=== PATIENT | male | born 1955 | race Caucasian/White ===

== ENCOUNTER 2017-12-16 03:21 | Observation (INO) | payer OTHER ==
[~2017-12-16] VITALS: Ht 175.3 cm; Wt 91.2 kg
[~2017-12-16 03:21] MED LIST: AMLODIPINE-BEN1 EAC5 PO; CYCLOBENZAPRINE5 M2 PO; LOPRESSOR50 M1 PO; MECLIZINE HCL25 MG PO; METOPROLOL TART25 M1 PO; OMEPRAZOLE40 M1 PO; ST. JOSEPH ASPI81 M1 PO
--- NOTE | 2017-12-16 10:16 | Operative Report ---
Operative/Inv Procedure Report Surgery Date: 12/16/17 Name of Procedure: MRI compatible dual-chamber pacemaker Pre-Operative Diagnosis: Sick sinus syndrome with symptomatic bradycardia and episodic second-degree heart block Post-Operative Diagnosis: Same Estimated Blood Loss: scant Surgeon/Welder Setter Electron Beam Machine: Tony Fernandes MD,Parviz Russell Anesthesia: local monitored anesthesi Operative/Procedure Note Note: After placement of monitoring lines the patient's left chest and shoulder were prepped and draped in a sterile fashion. 1% lidocaine was used as local anesthetic. Incision was made in the deltopectoral groove and carried down to prepectoralis fascia. Exploration the deltopectoral groove discovered no cephalic vein. The patient was then placed in Trendelenburg position and the subclavian vein was cannulated with a needle. A wire was passed under fluoroscopy into the right atrium. Sheath dilator was passed over the wire and the wire was retained. A Medtronic lead model #[id number] was then advanced and the pulmonary outflow tract and withdrawn into the right ventricular apex. R waves were measured at 13.4 mV. The pacing threshold was at 0.3 V with a current of 0.1 mA and an impedance of 1389 ohms. Sheath dilator was then passed over the retained wire and a preformed atrial lead model #[id number] was then passed through the sheath into the right atrial appendage. P waves were measured at 4.1 mV. The pacing threshold was at 0.3 V with a current was 0.4 mA and an impedance of 930 ohms. The leads were secured to the muscle fascia with Ethibond sutures. A pacemaker pocket was established with electrocautery. The leads were then connected to an MRI compatible dual-chamber Medtronic pacemaker. The pacemaker pocket was irrigated with antibiotic irrigation. Hemostasis was achieved with electrocautery. The wound was closed with a deep running Vicryl suture followed by running Vicryl subcuticular suture. It was dressed with a sterile dressing and a pressure dressing. The patient tolerated procedure well and brought to the recovery room awake in stable condition. CC: Ivana South MD
--- NOTE | 2017-12-16 11:00 | RADIOLOGY REPORT ---
EXAMINATION: XR PORTABLE CHEST CLINICAL INFORMATION: Status post pacemaker insertion COMPARISON: 12/12/2017 TECHNIQUE: Portable frontal view of the chest was obtained. FINDINGS: Lungs are hypoinflated and clear. No pulmonary edema, consolidation, pneumothorax or pleural effusion. Left pectoral region cardiac pacemaker with transvenous leads extending to the level of the right atrium and right ventricle. No acute osseous findings. IMPRESSION: No acute pulmonary disease after pacemaker insertion.
[2017-12-16 13:08] VITALS: BP 200/90
--- NOTE | 2017-12-16 15:32 | PN- Thoracic Surgery ---
Subjective Subjective: POC feeling well, some soreness at incision. no cp/sob. sandi reg diet, no n/v. + void. elevated BP postop, though denies taking his home BP meds today Objective Vital Signs and I&Os rechecked now: 184/78, was 200/90 when arrived to floor. HR 70s on monitor Physical Exam: GEN- NAD CARD- s1s2 rrr PULM-ctab INCISION- left chest dressing cdi EXT-calves soft nt Current Medications: Current Medications Sig/Elroy Start time Last Medication Dose Route Stop Time Status Admin Acetaminophen 650 MG Q6P PRN 12/16 1345 AC PO Amlodipine Besylate 10 MG DAILY 12/17 1000 DC PO Amlodipine Besylate 10 MG DAILY 12/16 1400 AC 12/16 PO 1436 Aspirin Buffered 81 MG DAILY 12/17 1000 DC PO Aspirin Buffered 81 MG DAILY 12/17 1000 AC PO Cyclobenzaprine HCl 5 MG AT BEDTIME 12/16 2200 DC PO Cyclobenzaprine HCl 5 MG AT BEDTIME 12/16 2200 AC PO Docusate Sodium 100 MG DAILY 12/16 1400 AC PO Lisinopril 20 MG DAILY 12/16 1400 AC 12/16 PO 1437 Meclizine HCl 25 MG TID PRN 12/16 1400 AC PO Meclizine HCl 25 MG TID PRN 12/16 1030 DC PO Metoprolol Tartrate 50 MG BID 12/16 2200 DC PO Metoprolol Tartrate 50 MG BID 12/16 2200 AC 12/16 PO 1547 Morphine Sulfate 2 MG Q2P PRN 12/16 1345 AC IV Omeprazole 40 MG DAILY AC 12/17 0700 DC PO Omeprazole 40 MG DAILY AC 12/16 1400 AC 12/16 PO 1435 Ondansetron HCl 4 MG Q6P PRN 12/16 1345 AC IV Oxycodone/ 1 TAB Q4P PRN 12/16 1345 AC 12/16 Acetaminophen PO 1439 Oxycodone/ 2 TAB Q4P PRN 12/16 1345 AC Acetaminophen PO Results Recent Imaging Studies: CXR (PACU): no PTX Assessment/Plan Assessment/Plan A- 62yoM with SSS POD0 sp ppm placement, pmhx htn and gerd, with hypertension postop, likely due to absence of his 3 home antihtn agents today, without PTX on PACU CXR. P- give home antihtn agents now continue to closely monitor VS prn pain meds hh diet as tolerated home meds ALPs, OOB, ambulate dc planning continue observation status on telemetry Core Measures Venous Thromboembolism VTE Risk Factors Surgery No Mechanical VTE Prophylaxis d/t N/A MechProphylax Ordered No VTE Pharm Prophylaxis d/t NA PharmProphylax ordered
[2017-12-16] MEDS ORDERED: PERCOCET 5-3251 EACH PO (18:32)
--- NOTE | 2017-12-16 18:41 | Patient Discharge Instructions ---
Discharge Instructions General Discharge Information You were seen/treated for: bradycardia, sick sinus syndrome You had these procedures: permanent pacemaker insertion Watch for these problems: fever>101, redness/drainage from incision, worsening chest pain, shortness of breath Do not soak the wound: Yes Other wound care: Please keep wound clean and dry. No ointments or lotions of any type on or near incision. Change dressing on the second day after your surgery. Daily dry dressing changes are recommended as needed. You may shower 48hr after surgery. Do not soak your wound- no tub baths or swimming. Diet Continue normal diet: Yes Activity Additional ACTIVITY Info: No strenuous activity. Wear left arm sling to immobilize the arm Acute Coronary Syndrome Inclusion Criteria At DC or during hospital stay patient has or had the following: ACS DIAGNOSIS No Discharge Core Measures Meds if any: Prescribed or Continued at Discharge Meds if any: NOT Prescribed or Continued at Discharge Congestive Heart Failure Inclusion Criteria At DC or during hospital stay patient has or had the following: CHF DIAGNOSIS No Discharge Core Measures Meds if any: Prescribed or Continued at Discharge Meds if any: NOT Prescribed or Continued at Discharge Cerebrovascular accident Inclusion Criteria At DC or during hospital stay patient has or had the following: CVA/TIA Diagnosis No Discharge Core Measures Meds if any: Prescribed or Continued at Discharge Meds if any: NOT Prescribed or Continued at Discharge Venous thromboembolism Inclusion Criteria VTE Diagnosis No VTE Type NONE VTE Confirmed by (Test) NONE Discharge Core Measures - Per Current guidelines, there needs to be overlap - treatment for the first 5 days of Warfarin therapy. - If discharged on Warfarin prior to 5 days of - overlap therapy, the patient will need to be - assessed for post discharge needs including - *Post discharge parental anticoagulation - *Warfarin and/or parental anticoagulation education - *Follow up date to check INR post discharge At least 5 days overlap therapy as Inpatient No Meds if any: Prescribed or Continued at Discharge Note: Overlap Therapy is Warfarin and Anticoagulant Meds if any: NOT Prescribed or Continued at Discharge
[2017-12-16 18:58] VITALS: BP 150/88
--- NOTE | 2017-12-16 20:22 | Surg Short-stay <48hrs Dis Sum ---
Visit Information Visit Dates Admission Date: 12/16/17 Discharge Date: 12/17/17 Surgical Short Stay DC Summary Admission Diagnosis: Sick sinus syndrome with symptomatic bradycardia and episodic second-degree heart block Final Diagnosis: same, sp MRI compatible dual-chamber pacemaker implantation Procedure(s): MRI compatible dual-chamber pacemaker implantation Summary/Significant Findings: 62yoM presented for elective PPM placement on 12/16/2017 for dx of sick sinus syndrome with symptomatic bradycardia and episodic second-degree heart block. Procedure was tolerated well. Postoperatively, he was observed overnight on telemetry floor. He is stable for discharge home. Condition at Discharge: stable Discharge Disposition: home or self care Discharge instructions provided to patient/family: Yes Post discharge follow-up plan: Call to be seen in Dr. Jimenez's office 2 weeks after procedure.
--- NOTE | 2017-12-16 22:02 | RADIOLOGY REPORT ---
EXAMINATION: CR CHEST/INTRAOPERATIVE FLUOROSCOPY CLINICAL INDICATION: Left pacemaker. COMPARISON: Chest x-ray dated 12/16/2017. TECHNIQUE/FINDINGS: Fluoroscopic equipment was dedicated to the operating room for the performance of an intraoperative procedure. 2 spot films were acquired and are archived in PACS, demonstrating right atrial and right ventricular pacer leads. Please refer to operative notes for procedural detail. FLUOROSCOPY TIME: 6.35 minutes. IMPRESSION: Administrative dictation for intraoperative fluoroscopy and image archiving in PACS. Please refer to operative notes for details.
[2017-12-16 22:24] VITALS: BP 130/70
[2017-12-17 06:33] VITALS: BP 166/92
[2017-12-17 07:45] VITALS: BP 166/92
--- NOTE | 2017-12-17 08:19 | PN- Thoracic Surgery ---
Subjective Subjective: pod#1 s/p dual chanber pacemaker placement no major issues overnight denies cp, sob, no n+v with diet pain controlled with po pain meds ambulating without difficulty Objective Vital Signs and I&Os Vital Signs Date Time Temp Pulse Resp B/P B/P Pulse O2 O2 Flow FiO2 Mean Ox Delivery Rate 12/17 0745 64 166/92 12/17 0745 64 166/92 12/17 0745 64 166/92 12/17 0633 97.7 64 12 166/92 98 Room Air 12/16 2224 97.0 61 20 130/70 95 12/16 1858 150/88 12/16 1547 80 184/80 12/16 1437 83 200/90 12/16 1436 83 200/90 12/16 1308 98.6 89 22 200/90 96 Room Air Intake & Output 12/17 1600 12/17 0800 12/17 0000 12/16 1600 12/16 0800 12/16 0000 Intake Total 360 120 Output Total Balance 360 120 Intake, Oral 360 120 Patient 201 lb Weight Physical Exam: cv: paced in NSR lungs: clear abd: soft, non tender ext: warm, distal cms grossly intact Assessment/Plan Assessment/Plan cardiac stable plan asaiting pacer interegation if ok, d/c home later this am f/u Dr Jimenez in 2 weeks Core Measures Venous Thromboembolism VTE Risk Factors Surgery No Mechanical VTE Prophylaxis d/t N/A MechProphylax Ordered No VTE Pharm Prophylaxis d/t NA PharmProphylax ordered
== END 2017-12-17 09:23 ==
LOC: STS 03:21 → EDSTATUS 07:00 → PACUH 10:21 → EDBEDREQ 10:37 → ENRESERV 12:01 → ENTRNSPT 12:37 → EDTRNSPT 12:41 → EDTRNSPTSTS 12:41 → 1NO 13:29 → CMPTRNSPT 13:55 → ENPENDDIS 12-17 08:19 → 1NO 12-17 09:23
DX: I49.5 Sick sinus syndrome (principal); R00.1 Bradycardia, unspecified; I10 Essential (primary) hypertension; K21.9 Gastro-esophageal reflux disease without esophagitis; Z79.82 Long term (current) use of aspirin; F17.210 Nicotine dependence, cigarettes, uncomplicated; Z85.828 Personal history of other malignant neoplasm of skin
CPT/HCPCS: 6020; 71045; 93005; 93010; C1785; C1898; G0378; J0690; J1644; J2250